=== PATIENT | female | born 1990 | race Hispanic/Latino ===

== ENCOUNTER 2018-06-02 19:22 | Outpatient (CLI) | payer OTHER, SELFPAY | END 2018-06-02 21:00 | disposition home or self-care (01) | LOC: M LDO 19:22 | DX: O47.03 False labor before 37 completed weeks of gestation, third trimester (principal); Z3A.31 31 weeks gestation of pregnancy | CPT/HCPCS: 59025 ==

== ENCOUNTER 2018-06-17 13:21 | Outpatient (CLI) | payer OTHER ==
[2018-06-17 14:51] LABS: HEMATOCRIT 26.5 % (36.0-47.0); HEMOGLOBIN 8.4 g/dl (12.0-15.5); MEAN CORPUSCULAR HEMOGLOBIN 24.6 pg (27.0-33.0); MEAN CORPUSCULAR HGB CONC 31.7 g/dl (32.0-36.5); MEAN CORPUSCULAR VOLUME 77.7 fl (80.0-96.0); PLATELET COUNT, AUTOMATED 334 10^3/uL (150-450); RED BLOOD COUNT 3.41 10^6/uL (4.00-5.40); RED CELL DISTRIBUTION WIDTH 13.7 % (11.5-14.5); WHITE BLOOD COUNT 7.3 10^3/uL (4.0-10.0)
[2018-06-17 15:13] LABS: ALT/SGPT 12 U/L (12-78); AST/SGOT 11 U/L (7-37); BILIRUBIN,TOTAL 0.3 MG/DL (0.2-1.0); CREATININE FOR GFR 0.48 MG/DL (0.55-1.30); GLOMERULAR FILTRATION RATE > 60.0 (>60); LDH LACTATE DEHYDROGENASE 152 U/L (84-246); URIC ACID 2.8 MG/DL (2.6-6.0)
== END 2018-06-17 16:51 | disposition home or self-care (01) ==
LOC: M LDO 13:21
DX: O99.89 Other specified diseases and conditions complicating pregnancy, childbirth and the puerperium (principal); Z3A.33 33 weeks gestation of pregnancy; O99.513 Diseases of the respiratory system complicating pregnancy, third trimester; R06.02 Shortness of breath; Z87.59 Personal history of other complications of pregnancy, childbirth and the puerperium
CPT/HCPCS: 59025

== ENCOUNTER → 2018-06-19 | Outpatient (REF) | payer OTHER ==
[2018-06-19 14:56] LABS: TOTAL VOLUME, URINE 600 ML
[2018-06-19 15:49] LABS: TOTAL PROTEIN 24 HOUR URINE 83.4 MG/24HR (50-150); URINE TOTAL PROTEIN 13.9 MG/DL (0-12)
== END ==
LOC: M LAB REF 13:37
DX: Z87.59 Personal history of other complications of pregnancy, childbirth and the puerperium (principal)

== ENCOUNTER → 2018-07-05 | Outpatient (REF) | payer OTHER | LOC: M LAB REF 16:43 | DX: Z34.83 Encounter for supervision of other normal pregnancy, third trimester (principal) ==

== ENCOUNTER 2018-07-13 16:17 | Inpatient (IN) | payer OTHER ==
[2018-07-13 17:39] LABS: HEMOGLOBIN 8.9 g/dl (12.0-15.5); MEAN CORPUSCULAR HEMOGLOBIN 23.2 pg (27.0-33.0); MEAN CORPUSCULAR HGB CONC 31.8 g/dl (32.0-36.5); MEAN CORPUSCULAR VOLUME 72.9 fl (80.0-96.0); PLATELET COUNT, AUTOMATED 361 10^3/uL (150-450); RED BLOOD COUNT 3.84 10^6/uL (4.00-5.40); RED CELL DISTRIBUTION WIDTH 14.6 % (11.5-14.5); WHITE BLOOD COUNT 8.9 10^3/uL (4.0-10.0)
[2018-07-13] MEDS: OXYTOCIN DRIP 30 UNITS in APPROPRIATE DILUENT 1 EA IV (18:28)
[2018-07-13] MEDS: LACTATED RINGER'S 1000 ML IV (21:06)
[2018-07-13] MEDS: LR 1,000 ML IV (21:06)
[2018-07-13] MEDS ORDERED: FENTANYL 2MCG/ML ROPIVACAINE 0.2% IN 0.9% NACL 200ML IVBAG As Ordered (21:20)
[2018-07-13] MEDS ORDERED: NALOXONE INJ 0.4 MG/1 ML VIAL (J2310) IV (22:30)
[2018-07-13] MEDS ORDERED: LACTATED RINGER'S 1000 ML IV (22:30)
[2018-07-13] MEDS ORDERED: EPIDURAL/PCA KEYS XX (22:30)
[2018-07-13] MEDS ORDERED: diphenhydrAMINE INJ 50MG/ML VIAL (J1200) IV (22:30)
[2018-07-13] MEDS ORDERED: REFRIGERATOR IV KEYS XX (22:30)
[2018-07-13] MEDS ORDERED: EPIDURAL COMMENT XX (22:30)
[2018-07-13] MEDS ORDERED: ONDANSETRON 4MG/2ML VIAL (J2405) IV (22:30)
[2018-07-13] MEDS ORDERED: ePHEDrine SULFATE 25 MG/5 ML(5MG/ML) SYRINGE IV (22:30)
[2018-07-13] MEDS: FENTANYL/ROPIVACAINE/NACL BAG 200 ML EPIDURAL (22:43)
[2018-07-14] MEDS ORDERED: LR 1,000 ML IV (01:27)
[2018-07-14] MEDS ORDERED: DOCUSATE SODIUM 100 MG CAP PO (01:30)
[2018-07-14] MEDS ORDERED: METHYLERGONOVINE MALEATE 0.2 MG TAB PO (01:30)
[2018-07-14] MEDS ORDERED: DIBUCAINE 1% OINTMENT 30GM TOP (01:30)
[2018-07-14] MEDS ORDERED: RHOGAM 300 MCG (1500 IU) INJ (J2790) IM (01:30)
[2018-07-14] MEDS ORDERED: PROMETHAZINE 25 MG TAB PO (01:30)
[2018-07-14] MEDS ORDERED: ONDANSETRON 4MG/2ML VIAL (J2405) IV (01:30)
[2018-07-14] MEDS ORDERED: MEASLES,MUMPS,RUBELLA VACCINE INJ (MMR-II) (90707) SC (01:30)
[2018-07-14] MEDS: OXYTOCIN DRIP 30 UNITS in APPROPRIATE DILUENT 1 EA IV (03:18)
[2018-07-14] MEDS: PRENATAL VITAMINS CHEWABLE TABLET PO ×2 (08:40→09:00)
[2018-07-14] MEDS: IBUPROFEN 800 MG TAB PO (08:40)
[2018-07-14] MEDS: ACETAMINOPHEN 500 MG TAB PO ×2 (08:41→14:29)
[2018-07-15] MEDS: IBUPROFEN 800 MG TAB PO (05:21)
== END 2018-07-15 16:35 | disposition home or self-care (01) | DRG 775 ==
LOC: M LDO 16:17 → M OBS 07-14 02:45 → M LDI 16:50
PROVIDERS: Obstetrics & Gynecology
PROC: 10E0XZZ Delivery of Products of Conception, External Approach (ICD-10-PCS; principal; 2018-07-14)
PROC: 0KQM0ZZ Repair Perineum Muscle, Open Approach (ICD-10-PCS; 2018-07-14)
DX: O34.211 Maternal care for low transverse scar from previous cesarean delivery (principal); Z37.0 Single live birth; Z3A.37 37 weeks gestation of pregnancy; O70.1 Second degree perineal laceration during delivery

== ENCOUNTER → 2018-11-06 | Outpatient (CLI) | payer OTHER ==
[~2018-11-06] MED LIST: COLA100C5 PO; IBUP-1114 PO; MAPA500T2 PO; NUPE1OIN2 TOP; PRENTAB9 PO
[2018-11-06 17:23] LABS: BASO % 0.4 % (0.0-1.0); EOS # 0.2 10^3/uL (0.0-0.50); EOS % 2.3 % (0.0-3.0); HEMATOCRIT 37.6 % (36.0-47.0); HEMOGLOBIN 11.7 g/dl (12.0-15.5); LYMPH # 3.2 10^3/uL (1.5-6.5); LYMPH % 38.5 % (24.0-44.0); MEAN CORPUSCULAR HEMOGLOBIN 24.2 pg (27.0-33.0); MEAN CORPUSCULAR HGB CONC 31.1 g/dl (32.0-36.5); MEAN CORPUSCULAR VOLUME 77.7 fl (80.0-96.0); MONO # 0.8 10^3/uL (0.0-0.8); MONO % 9.9 % (0.0-5.0); NEUTROPHILS # 4.1 10^3/uL (1.8-7.7); NEUTROPHILS % 48.7 % (36.0-66.0); PLATELET COUNT, AUTOMATED 378 10^3/uL (150-450); RED BLOOD COUNT 4.84 10^6/uL (4.00-5.40); WHITE BLOOD COUNT 8.4 10^3/uL (4.0-10.0)
== END ==
LOC: M SMT 15:20
PROVIDERS: ATTEND Obstetrics & Gynecology
DX: D50.8 Other iron deficiency anemias (principal)

== ENCOUNTER 2020-04-10 08:26 | Emergency (ER) | payer OTHER ==
[~2020-04-10] VITALS: Ht 160 cm; Wt 66.5 kg
[2020-04-10] MEDS ORDERED: CIPRODEX AS (09:06)
[2020-04-10] MEDS ORDERED: AUGM875T28 PO (09:06)
[2020-04-10 09:35] VITALS: BP 148/101
== END 2020-04-10 09:38 | disposition home or self-care (01) ==
LOC: M ED 08:26
DX: H92.02 Otalgia, left ear (principal); H60.92 Unspecified otitis externa, left ear; H66.92 Otitis media, unspecified, left ear; R03.0 Elevated blood-pressure reading, without diagnosis of hypertension

== ENCOUNTER → 2020-04-13 | Outpatient (REF) | payer OTHER ==
[~2020-04-13] MED LIST changes: +AUGM875T28 PO; +CIPRODEX AS
[2020-04-13 18:36] LABS: BASO % 0.5 % (0.0-1.0); EOS # 0.2 10^3/uL (0.0-0.5); EOS % 1.9 % (0.0-3.0); HEMATOCRIT 42.8 % (36.0-47.0); HEMOGLOBIN 14.9 g/dl (12.0-15.5); LYMPH # 2.5 10^3/uL (1.5-5.0); LYMPH % 29.9 % (24.0-44.0); MEAN CORPUSCULAR HEMOGLOBIN 32.7 pg (27.0-33.0); MEAN CORPUSCULAR HGB CONC 34.8 g/dl (32.0-36.5); MEAN CORPUSCULAR VOLUME 93.9 fl (80.0-96.0); MONO # 0.7 10^3/uL (0.0-0.8); MONO % 7.7 % (0.0-5.0); NEUTROPHILS % 59.6 % (36.0-66.0); PLATELET COUNT, AUTOMATED 326 10^3/uL (150-450); RED BLOOD COUNT 4.56 10^6/uL (4.00-5.40); WHITE BLOOD COUNT 8.4 10^3/uL (4.0-10.0)
[2020-04-13 18:43] LABS: ALBUMIN 3.9 GM/DL (3.2-5.2); ALT/SGPT 28 U/L (12-78); BILIRUBIN,TOTAL 0.5 MG/DL (0.2-1.0); BLOOD UREA NITROGEN 10 MG/DL (7-18); CALCIUM LEVEL 9.1 MG/DL (8.5-10.1); CARBON DIOXIDE LEVEL 29 MEQ/L (21-32); CHLORIDE LEVEL 106 MEQ/L (98-107); CREATININE FOR GFR 0.69 MG/DL (0.55-1.30); GLOMERULAR FILTRATION RATE > 60.0 (>60); GLUCOSE, FASTING 92 MG/DL (70-100); POTASSIUM SERUM 4.2 MEQ/L (3.5-5.1); SODIUM LEVEL 140 MEQ/L (136-145); TOTAL PROTEIN 8.1 GM/DL (6.4-8.2)
[2020-04-13 18:53] LABS: HEMOGLOBIN A1c 4.7 %
== END ==
LOC: M SFHCLERA 15:18
PROVIDERS: ATTEND Family Medicine
DX: R61 Generalized hyperhidrosis (principal); Z13.1 Encounter for screening for diabetes mellitus